=== PATIENT | female | born 1990 | race Caucasian/White ===

== ENCOUNTER → 2024-04-16 | Outpatient (CLI) | payer BC ==
[~2024-04-16] MED LIST: BIRTH CONTROL1 EACH PO; MEDROL DOSEPAK4 MG PO; NORCO 325 MG-51 TAB PO; PEN-VEE K500 MG PO
== END | disposition home or self-care (01) ==
LOC: RESCLI 16:02
PROVIDERS: ATTEND Student in an Organized Health Care Education/Training Program
DX: R63.4 Abnormal weight loss (principal); Z79.899 Other long term (current) drug therapy; Z88.8 Allergy status to other drugs, medicaments and biological substances; Z98.890 Other specified postprocedural states